=== PATIENT | female | born 1950 | race Caucasian/White ===

== ENCOUNTER 2020-04-05 07:05 | Emergency (ER) | payer MEDICARE, OTHER ==
[~2020-04-05] VITALS: Ht 165.1 cm; Wt 60.9 kg
[2020-04-05 07:11] VITALS: BP 175/103
[2020-04-05] MEDS ORDERED: LIDOcaine 1% 30ml preserv. free vial IJ ONE (07:15)
[2020-04-05] MEDS ORDERED: METH-360 PO (07:43)
--- NOTE | 2020-04-05 07:51 | NUR ---
pt states, im feeling much better. on painscale, pain 3-4/10
== END 2020-04-05 07:52 | disposition home or self-care (01) ==
LOC: ER 07:06
DX: M62.838 Other muscle spasm (principal); Z79.899 Other long term (current) drug therapy
CPT/HCPCS: 20553; 99284